=== PATIENT | male | born 1975 | race Two or more races ===

== ENCOUNTER 2016-05-06 00:15 | Emergency (ER) | payer SELFPAY ==
[2016-05-06] MEDS ORDERED: ACETAMINOPHEN 325 MG TABLET PO ONE (01:18)
[2016-05-06] MEDS ORDERED: ONDANSETRON 4 MG TAB.RAPDIS PO ONE (01:18)
[2016-05-06] MEDS ORDERED: ASPIRIN 81 MG TABLET, CHEWABLE PO ONE (01:18)
--- NOTE | 2016-05-06 01:18 | ER Document Report ---
ED Medical Screen (RME) - General Stated Complaint: FEVER Time seen by provider: 01:15 Mode of Arrival: Ambulatory Information source: Patient Notes: 40-year-old male presents to ED for fever cough sore throat headache chills and chest pain for 4 days. Patient denies a flu shot. Patient states she has a history of high cholesterol denies any family cardiac history. I have greeted and performed a rapid initial assessment of this patient. A comprehensive ED assessment and evaluation of the patient, analysis of test results and completion of medical decision making process will be conducted by an additional ED providers. TRAVEL OUTSIDE OF THE [place] IN LAST 30 DAYS: No - Related Data Allergies/Adverse Reactions: No Known Allergies Allergy (Verified 02/04/16 11:52) Past Medical History - Past Medical History Cardiac Medical History: Reports: Hx Hypercholesterolemia Neurological Medical History: Denies: Hx Seizures - Immunizations Hx Diphtheria, Pertussis, Tetanus Vaccination: Yes Physical Exam - Vital signs Vitals: Temp Pulse Resp BP Pulse Ox 101.7 F H 111 H 16 130/66 H 94 05/06/16 00:49 05/06/16 00:49 05/06/16 00:49 05/06/16 00:49 05/06/16 00:49 Course - Vital Signs Vital signs: Temp Pulse Resp BP Pulse Ox 101.7 F H 111 H 16 130/66 H 94 05/06/16 00:49 05/06/16 00:49 05/06/16 00:49 05/06/16 00:49 05/06/16 00:49
[2016-05-06] MEDS ORDERED: FAMOTIDINE 20 MG TABLET PO ONE (01:19)
[2016-05-06 02:53] LABS: ABSOLUTE LYMPHOCYTES (AUTO) 0.7 10^3/uL (0.5-4.7); ABSOLUTE MONOCYTES (AUTO) 0.7 10^3/uL (0.1-1.4); ABSOLUTE NEUT (AUTO) 3.1 10^3/uL (1.7-8.2); BASOPHILS % (AUTO) 0.9 % (0-2); EOSINOPHILS % (AUTO) 0.1 % (0-6); HEMOGLOBIN 15.8 g/dL (13.5-17.0); HGB HCT DIFFERENCE 0.4; LYMPHOCYTES % (AUTO) 15.9 % (13-45); MEAN CORPUSCULAR HEMOGLOBIN 29.6 pg (27.0-33.4); MEAN CORPUSCULAR HGB CONC 33.7 g/dL (32.0-36.0); MEAN CORPUSCULAR VOLUME 88 fl (80-97); MONOCYTES % (AUTO) 14.6 % (3-13); RED BLOOD COUNT 5.35 10^6/uL (4.35-5.55); RED CELL DISTRIBUTION WIDTH 12.6 % (11.5-14.0); SEGMENTED NEUTROPHILS % (AUTO) 68.5 % (42-78); WHITE BLOOD COUNT 4.6 10^3/uL (4.0-10.5)
[2016-05-06 03:02] LABS: ALANINE AMINOTRANSFERASE 72 U/L (21-72); ALBUMIN 4.2 g/dL (3.5-5.0); ALKALINE PHOSPHATASE 64 U/L (38-126); ANION GAP 11 (5-19); ASPARTATE AMINO TRANSFERASE 59 U/L (17-59); BILIRUBIN,TOTAL 0.6 mg/dL (0.2-1.3); BLOOD UREA NITROGEN 15 mg/dL (7-20); CALCIUM 9.3 mg/dL (8.4-10.2); CARBON DIOXIDE 25 mmol/L (22-30); CHLORIDE 102 mmol/L (98-107); CREATINE KINASE 112 U/L (55-170); CREATININE RESULT 0.99 mg/dL (0.52-1.25); GLUCOSE 116 mg/dL (75-110); LIPASE 75.2 U/L (23-300); POTASSIUM 4.1 mmol/L (3.6-5.0); SODIUM 138.3 mmol/L (137-145); TOTAL PROTEIN 7.7 g/dL (6.3-8.2)
[2016-05-06 03:15] LABS: CREATINE KINASE MB < 0.22 ng/mL (<4.55); TROPONIN I < 0.012 ng/mL
[2016-05-06 03:28] LABS: APPEARANCE,URINE CLEAR; BILIRUBIN,URINE NEGATIVE (NEGATIVE); GLUCOSE, URINE NEGATIVE (NEGATIVE); KETONES,URINE NEGATIVE (NEGATIVE); LEUKOCYTE ESTERASE,URINE NEGATIVE (NEGATIVE); NITRITE,URINE NEGATIVE (NEGATIVE); PROTEIN,URINE NEGATIVE (NEGATIVE); URINE SPECIFIC GRAVITY 1.023; UROBILINOGEN,URINE NEGATIVE mg/dL (<2.0)
--- NOTE | 2016-05-06 05:17 | ER Document Report ---
ED General - General Chief Complaint: Fever Stated Complaint: FEVER Mode of Arrival: Ambulatory Notes: Patient is 40-year-old male who presents with complaint of cough, fevers, congestion, and pain in his lower ribs whenever he coughs. No vomiting. No diarrhea. Symptoms have been ongoing for 4 days. He works at a restaurant. He has no chronic medical problems. He does not smoke. TRAVEL OUTSIDE OF THE [place] IN LAST 30 DAYS: No - Related Data Allergies/Adverse Reactions: No Known Allergies Allergy (Verified 05/06/16 01:15) Past Medical History - General Information source: Patient - Social History Smoking Status: Never Smoker Frequency of alcohol use: Social Drug Abuse: None Family History: Reviewed & Not Pertinent, Other - Negative for premature coronary artery disease - Past Medical History Cardiac Medical History: Reports: Hx Hypercholesterolemia Neurological Medical History: Denies: Hx Seizures Renal/ Medical History: Denies: Hx Peritoneal Dialysis - Immunizations Hx Diphtheria, Pertussis, Tetanus Vaccination: Yes Review of Systems - Review of Systems Notes: My Normal Review Basic REVIEW OF SYSTEMS: CONSTITUTIONAL : Fevers EENT: Sinus congestion CARDIOVASCULAR: Pain with cough RESPIRATORY: Current cough GASTROINTESTINAL: Denies abdominal pain. Denies nausea, vomiting, or diarrhea. Denies constipation. Last BM: MUSCULOSKELETAL: Denies neck or back pain or joint pain or swelling. SKIN: Denies rash or skin lesions. NEUROLOGICAL: Denies altered mental status or loss of consciousness. ALL OTHER SYSTEMS REVIEWED AND NEGATIVE. Physical Exam - Vital signs Vitals: Temp Pulse Resp BP Pulse Ox 101.7 F H 111 H 16 130/66 H 94 05/06/16 00:49 05/06/16 00:49 05/06/16 00:49 05/06/16 00:49 05/06/16 00:49 - Notes Notes: General Appearance: Well nourished, alert, cooperative, no acute distress, no obvious discomfort. Well-appearing. Vitals: reviewed, See vital signs table. Head: no swelling or tenderness to the head Eyes: PERRL, EOMI, Conjuctiva clear Mouth: No decreasd moisture Throat: No tonsillar inflammation, No airway obstruction, No lymphadenopathy Ears: Normal appearing tympanic membranes. Neck: Supple, no neck tenderness, No thyromegaly Lungs: No wheezing, No rales, No rhonci, No accessory muscle use, good air exchange bilaterally. Heart: Normal rate, Regular rythm, No murmur, no rub Abdomen: Normal BS, soft, No rigidity, No abdominal tenderness, No guarding, no rebound, no abdominal masses, no organomegaly Extremities: strength 5/5 in all extremities, good pulses in all extremities, no swelling or tenderness in the extremities, no edema. Skin: warm, dry, appropriate color, no rash Neuro: speech clear, oriented x 3, normal affect, responds appropriately to questions. Course - Vital Signs Vital signs: Temp Pulse Resp BP Pulse Ox 101.7 F H 111 H 16 130/66 H 94 05/06/16 00:49 05/06/16 00:49 05/06/16 00:49 05/06/16 00:49 05/06/16 00:49 - Laboratory Result Diagrams: 05/06/16 02:24 05/06/16 02:24 Laboratory results interpreted by me: 05/06/16 05/06/16 05/06/16 02:24 02:24 02:24 Plt Count 147 L Monocytes % 14.6 H Glucose 116 H Lactic Acid 0.6 L - Transfer of Care Notes: 05/06/16 05:17 Patient has symptoms are consistent with the flu. Informed patient most likely has flu. His symptoms for over 4 days. At this point is just symptomatically controlled with Tylenol. His chest x-ray is negative for pneumonia. He initially complained of chest pain and therefore they obtained cardiac enzymes in triage. These are negative. I do not suspect coronary artery disease. I suspect his pain is from his coughing. Patient will be discharged home. I encouraged him to return to ER if has worsening pain, difficulty breathing, fevers, or feels unwell. Patient agrees with plan and will be discharged home. Discharge - Discharge Clinical Impression: Cough Fever Qualifiers: Fever type: unspecified Qualified Code(s): R50.9 - Fever, unspecified URI (upper respiratory infection) Qualifiers: URI type: unspecified URI Qualified Code(s): J06.9 - Acute upper respiratory infection, unspecified Condition: Good Disposition: HOME, SELF-CARE Additional Instructions: Based on your symptoms I suspect that most likely you have the flu. You could also have another virus that causes an upper respiratory infection. Currently your chest x-ray is normal. Your lung sidhu are clear. There is no evidence of pneumonia. Is still important that you have low threshold to return to ER if he started having difficulty breathing, vomiting, or worsening fevers that did not respond to Tylenol. Please follow closely with her doctor in 3-4 days for reevaluation if you continue have any symptoms. Please take Tylenol and Motrin for fever and body aches. Please stay home and rest and drink lots of fluids. . Forms: Return to Work
[2016-05-06 05:21] VITALS: BP 129/73
--- NOTE | 2016-05-06 08:33 | EKG REPORT ---
SEVERITY:- BORDERLINE ECG - SINUS RHYTHM BORDERLINE T ABNORMALITIES, INFERIOR LEADS : Confirmed by: Janey Ramírez 06-May-2016 08:31:59
== END 2016-05-06 05:21 | disposition home or self-care (01) ==
LOC: ER 00:15
DX: J06.9 Acute upper respiratory infection, unspecified (principal); R50.9 Fever, unspecified; R07.9 Chest pain, unspecified; E78.00 Pure hypercholesterolemia, unspecified
CPT/HCPCS: 93005; 99284; 36415; 82553; 82550; 83690; 85025; 80053; 81001; 84484; 83605; 71020; 93010; S0119

== ENCOUNTER 2016-06-24 12:35 | Emergency (ER) | payer SELFPAY ==
[2016-06-24] MEDS ORDERED: LIDOCAINE 2% VISCOUS SOLN 20 ML UDCUP PO ONE (13:02)
[2016-06-24] MEDS ORDERED: MAG HYDROX/AL HYDROX/SIMETH SUSP 30 ML UDCUP PO ONE (13:02)
[2016-06-24] MEDS ORDERED: METOCLOPRAMIDE HCL ORAL SOLN 10 MG/10 ML UDCUP PO ONE (13:02)
[2016-06-24 13:03] LABS: ABSOLUTE EOSINOPHILS # (AUTO) 0.6 10^3/uL (0.0-0.6); ABSOLUTE LYMPHOCYTES (AUTO) 1.4 10^3/uL (0.5-4.7); ABSOLUTE MONOCYTES (AUTO) 0.4 10^3/uL (0.1-1.4); ABSOLUTE NEUT (AUTO) 3.2 10^3/uL (1.7-8.2); BASOPHILS % (AUTO) 0.8 % (0-2); EOSINOPHILS % (AUTO) 10.4 % (0-6); HEMOGLOBIN 15.3 g/dL (13.5-17.0); HGB HCT DIFFERENCE 0.9; LYMPHOCYTES % (AUTO) 24.7 % (13-45); MEAN CORPUSCULAR HGB CONC 34.1 g/dL (32.0-36.0); MEAN CORPUSCULAR VOLUME 88 fl (80-97); MONOCYTES % (AUTO) 7.7 % (3-13); RED BLOOD COUNT 5.11 10^6/uL (4.35-5.55); RED CELL DISTRIBUTION WIDTH 13.6 % (11.5-14.0); SEGMENTED NEUTROPHILS % (AUTO) 56.4 % (42-78); WHITE BLOOD COUNT 5.7 10^3/uL (4.0-10.5)
[2016-06-24 13:04] LABS: VENOUS BLOOD BASE EXCESS -2.3 mmol/L; VENOUS BLOOD HCO3 21.4 mmol/L (20-32); VENOUS BLOOD PCO2 34.5 mmHg (35-63); VENOUS BLOOD PH 7.41 (7.30-7.42)
--- NOTE | 2016-06-24 13:20 | ER Document Report ---
ED General - General Chief Complaint: Chest Pain Stated Complaint: CHEST PAIN Time seen by provider: 12:40 Mode of Arrival: Medic Information source: Patient Notes: 40-year-old male who reports sudden onset of a sharp pinching type pain just lateral to the left upper sternal border while walking about 10:00 this morning. He reports shortness breath diaphoresis and nausea with it says it lasted about 10 minutes and then resolved and he said to further episodes since then. He is pain-free at the moment. He reports she's had symptoms like this several times in the past dayhis panic attacks. He reports no history of travel or immobilization. He denies fever, chills, cough, hematemesis, mattress , melena, abdominal pain, or back pain. He reports the pain numbness weakness or swelling to extremities. He reports his chest discomfort is nonradiating Physical Exam: General: Alert, appears well. HEENT: Normocephalic. Atraumatic. PERRLA. Extraocular movements intact. Oropharynx clear. Neck: Supple. Non-tender. Respiratory: No respiratory distress. Clear and equal breath sounds bilaterally. Nontender to palpation Cardiovascular: Regular rate and rhythm. PMI not displaced Abdominal: Normal Inspection. Soft, non-tender. No distension. Normal Bowel Sounds. Back: Non-tender. No deformity or step off. Extremities: Moves all four extremities. Upper extremities: Normal inspection. Non-tender. Normal color. Normal ROM. Normal temperature. Lower extremities: Normal inspection. Non-tender. No edema. Normal color. Normal ROM. Normal temperature. 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 Normal Mood. Skin: Warm. Dry. Normal color. TRAVEL OUTSIDE OF THE [place] IN LAST 30 DAYS: No - Related Data Allergies/Adverse Reactions: No Known Allergies Allergy (Verified 05/06/16 01:15) Past Medical History - Social History Smoking Status: Never Smoker Chew tobacco use (# tins/day): No Frequency of alcohol use: Heavy - Patient reports about 12 beers daily on weekends in 3 or 4 day during the week Drug Abuse: None Family History: Other - Negative for premature coronary artery disease Reports mother has panic attacks - Past Medical History Cardiac Medical History: Reports: Hx Hypercholesterolemia Denies: Hx Coronary Artery Disease, Hx Hypertension Neurological Medical History: Denies: Hx Seizures Endocrine Medical History: Denies: Hx Diabetes Mellitus Type 1, Hx Diabetes Mellitus Type 2 Renal/ Medical History: Denies: Hx Peritoneal Dialysis - Immunizations Hx Diphtheria, Pertussis, Tetanus Vaccination: Yes Review of Systems - Review of Systems Constitutional: denies: Chills, Fever EENT: denies: Ear pain, Throat pain Cardiovascular: See HPI. denies: Palpitations, Syncope Respiratory: denies: Cough Gastrointestinal: denies: Diarrhea, Vomiting, Blood in vomit, Black stools, Rectal bleeding Genitourinary: denies: Burning, Dysuria Musculoskeletal: denies: Back pain, Leg swelling, Ankle swelling Skin: denies: Rash Hematologic/Lymphatic: denies: Swollen glands Neurological/Psychological: denies: Weakness, Numbness Physical Exam - Vital signs Vitals: Temp Pulse Resp BP Pulse Ox 98.3 F 84 18 106/84 96 06/24/16 12:45 06/24/16 12:45 06/24/16 12:45 06/24/16 12:45 06/24/16 12:45 Course - Re-evaluation Re-evalutation: 06/24/16 15:23 Patient remains asymptomatic here. His heart score of 1 and coronary artery disease as etiology for his chest discomfort. Differential would include alkaline gastritis as well as panic attacks. Of counseled him to cut back on his alcohol use and take Prevacid or Prilosec [id number] for gastritis type symptoms. Also provided with outpatient physician referral as he has no local physician - Vital Signs Vital signs: Temp Pulse Resp BP Pulse Ox 98.3 F 84 18 106/84 96 06/24/16 12:45 06/24/16 12:45 06/24/16 12:45 06/24/16 12:45 06/24/16 12:45 - Laboratory Result Diagrams: 06/24/16 12:42 06/24/16 12:42 Laboratory results interpreted by me: 06/24/16 06/24/16 06/24/16 12:42 12:42 12:42 Eosinophils % 10.4 H VBG pCO2 34.5 L Sodium 148.7 H Chloride 110 H Carbon Dioxide 19 L Anion Gap 20 H Glucose 113 H ALT 74 H - Diagnostic Test Radiology reviewed: Image reviewed, Reports reviewed - EKG Interpretation by Me Additional EKG results interpreted by me: 06/24/16 13:24 EKG reviewed by myself shows sinus rhythm at 85 no acute changes 06/24/16 15:22 Repeat EKG reviewed by myself shows sinus rhythm at 70 with no acute changes Discharge - Discharge Clinical Impression: Alcohol abuse Chest pain Qualifiers: Chest pain type: unspecified Qualified Code(s): R07.9 - Chest pain, unspecified Condition: Stable Disposition: HOME, SELF-CARE Instructions: Chest Pain of Unclear Cause (OM), Prilosec (Acid Pump Inhibitor ) ([facility]), Antacid Therapy ([facility]) Referrals: DIONICIO BECKER MD [ACTIVE STAFF] - Follow up in 1 week
[2016-06-24 13:26] LABS: ALANINE AMINOTRANSFERASE 74 U/L (21-72); ALBUMIN 4.1 g/dL (3.5-5.0); ALCOHOL 17 mg/dL (NONE DETECTED); ALKALINE PHOSPHATASE 64 U/L (38-126); ASPARTATE AMINO TRANSFERASE 38 U/L (17-59); BILIRUBIN,DIRECT 0.2 mg/dL (0.0-0.4); BILIRUBIN,TOTAL 0.5 mg/dL (0.2-1.3); BLOOD UREA NITROGEN 10 mg/dL (7-20); CALCIUM 8.6 mg/dL (8.4-10.2); CARBON DIOXIDE 19 mmol/L (22-30); CHLORIDE 110 mmol/L (98-107); CREATINE KINASE 81 U/L (55-170); GLUCOSE 113 mg/dL (75-110); LIPASE 47.8 U/L (23-300); MAGNESIUM 1.8 mg/dL (1.6-2.3); POTASSIUM 3.8 mmol/L (3.6-5.0); SODIUM 148.7 mmol/L (137-145); TOTAL PROTEIN 6.8 g/dL (6.3-8.2)
[2016-06-24 13:27] LABS: ANION GAP 20 (5-19)
--- NOTE | 2016-06-24 13:31 | EKG REPORT ---
SEVERITY:- NORMAL ECG - SINUS RHYTHM : Confirmed by: Rylan Espino MD 24-Jun-2016 13:30:56
[2016-06-24 13:41] LABS: CREATINE KINASE MB 0.58 ng/mL (<4.55)
[2016-06-24 13:42] LABS: TROPONIN I < 0.012 ng/mL
[2016-06-24] MEDS ORDERED: 1/2 NORMAL SALINE 1,000 ML IV ONE (13:54)
[2016-06-24 15:38] VITALS: BP 132/88
--- NOTE | 2016-06-24 18:58 | EKG REPORT ---
SEVERITY:- NORMAL ECG - SINUS RHYTHM : Confirmed by: Rylan Espino MD 24-Jun-2016 18:57:26
== END 2016-06-24 15:40 | disposition home or self-care (01) ==
LOC: ER 12:35
DX: R07.9 Chest pain, unspecified (principal); F10.10 Alcohol abuse, uncomplicated; R06.02 Shortness of breath; R61 Generalized hyperhidrosis; R11.0 Nausea
CPT/HCPCS: 93005; 99285; 36415; 82553; 80307; 82550; 83690; 83735; 85025; 80053; 84484; 82803; 71010; 93010; J3490

== ENCOUNTER 2016-11-21 14:42 | Emergency (ER) | payer SELFPAY ==
[2016-11-21 15:19] LABS: ABSOLUTE EOSINOPHILS # (AUTO) 0.2 10^3/uL (0.0-0.6); ABSOLUTE LYMPHOCYTES (AUTO) 1.3 10^3/uL (0.5-4.7); ABSOLUTE MONOCYTES (AUTO) 0.4 10^3/uL (0.1-1.4); ABSOLUTE NEUT (AUTO) 3.6 10^3/uL (1.7-8.2); BASOPHILS % (AUTO) 0.8 % (0-2); EOSINOPHILS % (AUTO) 4.4 % (0-6); HEMATOCRIT 43.8 % (37.9-51.0); HEMOGLOBIN 14.8 g/dL (13.5-17.0); HGB HCT DIFFERENCE 0.6; LYMPHOCYTES % (AUTO) 23.9 % (13-45); MEAN CORPUSCULAR HEMOGLOBIN 30.8 pg (27.0-33.4); MEAN CORPUSCULAR HGB CONC 33.9 g/dL (32.0-36.0); MEAN CORPUSCULAR VOLUME 91 fl (80-97); MONOCYTES % (AUTO) 6.8 % (3-13); RED BLOOD COUNT 4.82 10^6/uL (4.35-5.55); RED CELL DISTRIBUTION WIDTH 13.2 % (11.5-14.0); SEGMENTED NEUTROPHILS % (AUTO) 64.1 % (42-78); WHITE BLOOD COUNT 5.6 10^3/uL (4.0-10.5)
--- NOTE | 2016-11-21 15:25 | ER Document Report ---
ED General - General Information source: Patient TRAVEL OUTSIDE OF THE [place] IN LAST 30 DAYS: No <NEO CARTWRIGHT - Last Filed: 11/21/16 15:25> <JOON MARTINEZ - Last Filed: 11/21/16 16:48> - General Chief Complaint: Chest Pain Stated Complaint: CHEST PAIN Time Seen by Provider: 11/21/16 15:13 Notes: Patient is a 41-year-old male who presents to the emergency department today with complaints of reproducible chest pain for one week. Patient states that he was here in June for chest pain however "that was a panic attack, this is different". Patient's pain is reproducible with palpation of the left anterior chest wall. Patient states his pain is not reproduced with a cough. Patient denies a history of coronary artery disease and also denies a family history of coronary artery disease. (NEO CARTWRIGHT) - Related Data Allergies/Adverse Reactions: No Known Allergies Allergy (Verified 05/06/16 01:15) Past Medical History - General Information source: Patient, [facility] Records - Social History Smoking Status: Never Smoker Cigarette use (# per day): No Frequency of alcohol use: Heavy - 6 beers a day Drug Abuse: None Occupation: Cook Lives with: Family Family History: Reviewed & Not Pertinent, Other - Negative for premature coronary artery disease Reports mother has panic attacks - Past Medical History Cardiac Medical History: Reports: Hx Hypercholesterolemia Surgical Hx: Negative - Immunizations Hx Diphtheria, Pertussis, Tetanus Vaccination: Yes <NEO CARTWRIGHT - Last Filed: 11/21/16 15:25> Review of Systems - Review of Systems Constitutional: No symptoms reported EENT: No symptoms reported Cardiovascular: See HPI, Chest pain - reproducible Respiratory: denies: Cough Gastrointestinal: No symptoms reported Genitourinary: No symptoms reported Male Genitourinary: No symptoms reported Musculoskeletal: No symptoms reported Skin: No symptoms reported Hematologic/Lymphatic: No symptoms reported Neurological/Psychological: No symptoms reported -: Yes All other systems reviewed and negative <NEO CARTWRIGHT - Last Filed: 11/21/16 15:25> Physical Exam - Vital signs Interpretation: Normal - General General appearance: Appears well, Alert - HEENT Head: Normocephalic, Atraumatic Eyes: Normal Pupils: PERRL - Respiratory Respiratory status: No respiratory distress Chest status: Tender - left anterior chest wall tenderness with palpation, reproducible chest pain Breath sounds: Normal Chest palpation: Normal - Cardiovascular Rhythm: Regular Heart sounds: Normal auscultation Murmur: No - Abdominal Inspection: Normal Distension: No distension Bowel sounds: Normal Tenderness: Nontender Organomegaly: No organomegaly - Back Back: Normal, Nontender - Extremities General upper extremity: Normal inspection, Normal strength. No: Edema General lower extremity: Normal inspection, Normal strength. No: Edema - Neurological Neuro grossly intact: Yes Cognition: Normal Orientation: AAOx4 [place] Coma Scale Eye Opening: Spontaneous Maru Coma Scale Verbal: Oriented Maru Coma Scale Motor: Obeys Commands [place] Coma Scale Total: 15 Speech: Normal - Psychological Associated symptoms: Normal affect, Normal mood - Skin Skin Temperature: Warm Skin Moisture: Dry Skin Color: Normal <NEO CARTWRIGHT - Last Filed: 11/21/16 15:25> - Vital signs Vitals: Pulse Ox 96 11/21/16 15:08 Course - Laboratory Result Diagrams: 11/21/16 15:00 11/21/16 15:00 <CHAYNEO - Last Filed: 11/21/16 15:25> - Laboratory Result Diagrams: 11/21/16 15:00 11/21/16 15:00 <JOON MARTINEZ - Last Filed: 11/21/16 16:48> - Vital Signs Vital signs: Temp Pulse Resp BP Pulse Ox 98 11/21/16 15:09 Discharge <CHAYNEO - Last Filed: 11/21/16 15:25> <JOON MARTINEZ - Last Filed: 11/21/16 16:48> - Discharge Clinical Impression: Chest wall pain Condition: Stable Disposition: HOME, SELF-CARE Additional Instructions: Chest Wall Pain: Your chest pain has been diagnosed as coming from the chest wall. This is often caused by straining the muscles or joints in the chest during physical activity, direct trauma, coughing, or vigorous vomiting. Persons with arthritis are especially prone to this type of pain, due to inflammation of the cartilage joints near the breast bone. Occasionally, no cause can be found. Rest from strenuous physical activity. This kind of chest pain is usually made worse by movement of the chest. Depending on the symptoms, we may recommend medication such as Motrin or Aleve for antiinflammatory effects. If the pain is new, and seems to be due to muscle strain, cold packs can help. Otherwise, apply gentle warmth to the painful area for 15 minutes every hour or two. You should contact the doctor immediately if things change. Further evaluation is needed if you develop a fever or cough, if the nature of the pain changes, or if you become short of breath. Follow-up with your doctor if not improving. RETURN TO THE EMERGENCY ROOM IF ANY NEW OR WORSENING SYMPTOMS. Trishaibe Attestation: 11/21/16 16:48 I personally performed the services described in the documentation, reviewed and edited the documentation which was dictated to the scribe in my presence, and it accurately records my words and actions. (JOON MARTINEZ) Trishaibe Documentation - Scribe Written by Eduardo:: Eduardo Villa, 11/21/2016 1530 acting as scribe for :: Yamil <NEO CARTWRIGHT - Last Filed: 11/21/16 15:25>
[2016-11-21 15:32] LABS: ALANINE AMINOTRANSFERASE 50 U/L (21-72); ALBUMIN 4.5 g/dL (3.5-5.0); ALKALINE PHOSPHATASE 56 U/L (38-126); ANION GAP 14 (5-19); ASPARTATE AMINO TRANSFERASE 32 U/L (17-59); BILIRUBIN,DIRECT 0.4 mg/dL (0.0-0.4); BILIRUBIN,TOTAL 0.6 mg/dL (0.2-1.3); BLOOD UREA NITROGEN 12 mg/dL (7-20); CALCIUM 9.5 mg/dL (8.4-10.2); CARBON DIOXIDE 26 mmol/L (22-30); CHLORIDE 104 mmol/L (98-107); CREATINE KINASE 97 U/L (55-170); CREATININE RESULT 0.83 mg/dL (0.52-1.25); GLUCOSE 101 mg/dL (75-110); POTASSIUM 4.1 mmol/L (3.6-5.0); SODIUM 144.3 mmol/L (137-145); TOTAL PROTEIN 7.3 g/dL (6.3-8.2)
[2016-11-21 15:46] LABS: CREATINE KINASE MB 0.58 ng/mL (<4.55)
[2016-11-21 15:49] LABS: TROPONIN I < 0.012 ng/mL
--- NOTE | 2016-11-21 16:02 | RADIOLOGY REPORT (SQ) ---
EXAM DESCRIPTION: CHEST SINGLE VIEW COMPLETED DATE/TIME: 11/21/2016 3:39 pm REASON FOR STUDY: bed 16 cp COMPARISON: 06/24/2016 EXAM PARAMETERS: NUMBER OF VIEWS: One view. TECHNIQUE: Single frontal radiographic view of the chest acquired. RADIATION DOSE: NA LIMITATIONS: None. FINDINGS: LUNGS AND PLEURA: No opacities, masses or pneumothorax. No pleural effusion. MEDIASTINUM AND HILAR STRUCTURES: No masses. Contour normal. HEART AND VASCULAR STRUCTURES: Heart normal in size. Normal vasculature. BONES: No acute findings. HARDWARE: None in the chest. OTHER: No other significant finding. IMPRESSION: NO ACUTE RADIOGRAPHIC FINDING IN THE CHEST. TECHNICAL DOCUMENTATION: JOB ID: [id number]
[2016-11-21 17:02] VITALS: BP 106/73
--- NOTE | 2016-11-21 18:57 | EKG REPORT ---
SEVERITY:- BORDERLINE ECG - SINUS RHYTHM BORDERLINE T ABNORMALITIES, INFERIOR LEADS BORDERLINE ST ELEVATION, ANTEROLATERAL LEADS : Confirmed by: Rylan Espino MD 21-Nov-2016 18:57:19
--- NOTE | 2016-11-21 18:58 | EKG REPORT ---
SEVERITY:- NORMAL ECG - SINUS RHYTHM : Confirmed by: Rylan Espino MD 21-Nov-2016 18:57:28
== END 2016-11-21 17:02 | disposition home or self-care (01) ==
LOC: ER 14:42
DX: R07.89 Other chest pain (principal); R05 Cough
CPT/HCPCS: 36415; 71010; 80053; 82550; 82553; 84484; 85025; 93005; 93010; 99285

== ENCOUNTER 2017-05-10 16:00 | Emergency (ER) | payer SELFPAY ==
[2017-05-10] MEDS ORDERED: ONDANSETRON HCL INJ/PF 4 MG/2 ML SDV IV ONE (16:30)
[2017-05-10] MEDS ORDERED: NORMAL SALINE 1000 ML 1,000 ML IV ONE (16:30)
--- NOTE | 2017-05-10 16:33 | ER Document Report ---
ED Medical Screen (RME) - General Chief Complaint: Dizziness Stated Complaint: DIZZY Time Seen by Provider: 05/10/17 16:30 Mode of Arrival: Medic Information source: Patient TRAVEL OUTSIDE OF THE [place] 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 EMS called and transported here for further evaluation. - Related Data Allergies/Adverse Reactions: No Known Allergies Allergy (Verified 05/10/17 16:24) Past Medical History - Social History Chew tobacco use (# tins/day): No Frequency of alcohol use: daily after work Drug Abuse: None - Past Medical History Cardiac Medical History: Reports: Hx Hypercholesterolemia Denies: Hx Coronary Artery Disease, Hx Hypertension Neurological Medical History: Denies: Hx Seizures Endocrine Medical History: Denies: Hx Diabetes Mellitus Type 1, Hx Diabetes Mellitus Type 2 Renal/ Medical History: Denies: Hx Peritoneal Dialysis - Immunizations Hx Diphtheria, Pertussis, Tetanus Vaccination: Yes Physical Exam - Vital signs Vitals: Temp Pulse Resp BP Pulse Ox 98.4 F 79 16 118/75 93 05/10/17 16:13 05/10/17 16:13 05/10/17 16:13 05/10/17 16:13 05/10/17 16:13 Course - Vital Signs Vital signs: Temp Pulse Resp BP Pulse Ox 98.4 F 79 16 118/75 93 05/10/17 16:13 05/10/17 16:13 05/10/17 16:13 05/10/17 16:13 05/10/17 16:13
[2017-05-10 16:47] LABS: ABSOLUTE EOSINOPHILS # (AUTO) 0.4 10^3/uL (0.0-0.6); ABSOLUTE MONOCYTES (AUTO) 0.5 10^3/uL (0.1-1.4); ABSOLUTE NEUT (AUTO) 3.3 10^3/uL (1.7-8.2); BASOPHILS % (AUTO) 0.6 % (0-2); EOSINOPHILS % (AUTO) 5.7 % (0-6); HEMATOCRIT 45.4 % (37.9-51.0); HEMOGLOBIN 15.7 g/dL (13.5-17.0); LYMPHOCYTES % (AUTO) 32.6 % (13-45); MEAN CORPUSCULAR HEMOGLOBIN 30.9 pg (27.0-33.4); MEAN CORPUSCULAR HGB CONC 34.5 g/dL (32.0-36.0); MEAN CORPUSCULAR VOLUME 90 fl (80-97); MONOCYTES % (AUTO) 8.3 % (3-13); PLATELET COUNT 212 10^3/uL (150-450); RED BLOOD COUNT 5.07 10^6/uL (4.35-5.55); RED CELL DISTRIBUTION WIDTH 12.7 % (11.5-14.0); SEGMENTED NEUTROPHILS % (AUTO) 52.8 % (42-78); TOTAL CELLS COUNTED % (AUTO) 100 %; WHITE BLOOD COUNT 6.2 10^3/uL (4.0-10.5)
[2017-05-10 17:07] LABS: ALANINE AMINOTRANSFERASE 118 U/L (21-72); ALBUMIN 4.4 g/dL (3.5-5.0); ALKALINE PHOSPHATASE 55 U/L (38-126); ANION GAP 11 (5-19); ASPARTATE AMINO TRANSFERASE 60 U/L (17-59); BILIRUBIN,DIRECT 0.3 mg/dL (0.0-0.4); BILIRUBIN,TOTAL 0.6 mg/dL (0.2-1.3); BLOOD UREA NITROGEN 14 mg/dL (7-20); CARBON DIOXIDE 23 mmol/L (22-30); CHLORIDE 106 mmol/L (98-107); CREATINE KINASE 93 U/L (55-170); GLUCOSE 143 mg/dL (75-110); POTASSIUM 4.1 mmol/L (3.6-5.0); SODIUM 140.2 mmol/L (137-145); TOTAL PROTEIN 7.3 g/dL (6.3-8.2)
[2017-05-10 17:18] LABS: CREATINE KINASE MB 0.58 ng/mL (<4.55)
[2017-05-10 17:19] LABS: TROPONIN I < 0.012 ng/mL
[2017-05-10 19:36] VITALS: BP 139/73
--- NOTE | 2017-05-10 21:34 | EKG REPORT ---
SEVERITY:- ABNORMAL ECG - SINUS RHYTHM NONSPECIFIC ST-T CHANGES- INFERIOR LEADS : Confirmed by: Rylan Espino MD 10-May-2017 21:33:46
== END 2017-05-10 19:36 | disposition home or self-care (01) ==
LOC: ER 16:00
DX: R55 Syncope and collapse (principal)
CPT/HCPCS: 93005; 99284; 96361; 96374; 36415; 82553; 82550; 85025; 80053; 84484; 93010; J2405; J7030

== ENCOUNTER 2017-12-16 22:47 | Emergency (ER) | payer SELFPAY ==
[2017-12-17 00:56] VITALS: BP 120/84
--- NOTE | 2017-12-17 01:02 | ER Document Report ---
ED General - General Chief Complaint: Anxiety Stated Complaint: PANIC ATTACK Time Seen by Provider: 12/17/17 00:11 Notes: Patient is a 42-year-old male with history of panic disorder that presents to the emergency department for chief complaint of panic episode anxiety. Patient states that while he was at work this evening, he was standing and felt lightheaded, and then started hyperventilating, and having palpitations, and he felt that his hands were clenching up. He called 911 at this point, EMS arrived , and by that time he was feeling better. So we decided not to come. He then started feeling similar sensations, again his hands clenching a perioral paresthesias, they are on the way to the hospital and they called 911 and he was brought into the emergency department. He did take 1 of his prescribed hydroxyzine 25 mg prior to ED arrival. At this time he is feeling very well, denies any of these symptoms, and they have all resolved. These are very similar to his panic attacks has had in the past this will just seem to be worse. He denies any chest pain, shortness of breath, nausea, vomiting or abdominal pain. Past Medical History: Panic disorder, hyperlipidemia Past Surgical History: Denies surgical history Social History: Admits to drinking alcohol daily, denies tobacco or drug use. Family History: Reviewed and noncontributory for presenting illness Allergies: Reviewed, see documented allergy list. REVIEW OF SYSTEMS: Unless otherwise stated in this report the patient's positive and negative responses for review of systems for constitutional, eyes, ENT, cardiovascular, respiratory, gastrointestinal, neurological, genitourinary, musculoskeletal, and integumentary systems and related systems to the presenting problem are either as stated in the HPI or were not pertinent or were negative for the symptoms and/or complaints related to the presenting medical problem. PHYSICAL EXAMINATION: Vital signs reviewed, nursing noted reviewed. GENERAL: Well-appearing, well-nourished and in no acute distress. HEAD: Atraumatic, normocephalic. EYES: Eyes appear normal, extraocular movements intact, sclera anicteric, conjunctiva are normal. ENT: nares patent, oropharynx clear without exudates. Moist mucous membranes. NECK: Normal range of motion, supple without lymphadenopathy LUNGS: Breath sounds clear to auscultation bilaterally and equal. No wheezes rales or rhonchi. HEART: Regular rate and rhythm without murmurs ABDOMEN: Soft, nontender, normoactive bowel sounds. No rebound, guarding, or rigidity. No masses appreciated. EXTREMITIES: Nontender, good range of motion, no pitting or edema. NEUROLOGICAL: No focal neurological deficits. Moves all extremities spontaneously Motor and sensory grossly intact on exam. PSYCH: Normal mood, normal affect. Conversant and appropriate SKIN: Warm, Dry, normal turgor, no rashes or lesions noted on exposed skin TRAVEL OUTSIDE OF THE [place] IN LAST 30 DAYS: No - Related Data Allergies/Adverse Reactions: No Known Allergies Allergy (Verified 05/10/17 16:24) Past Medical History - Social History Smoking Status: Never Smoker Family History: Reviewed & Not Pertinent, Other - Negative for premature coronary artery disease Reports mother has panic attacks Patient has suicidal ideation: No Patient has homicidal ideation: No - Past Medical History Cardiac Medical History: Reports: Hx Hypercholesterolemia Denies: Hx Coronary Artery Disease, Hx Hypertension Neurological Medical History: Denies: Hx Seizures Endocrine Medical History: Denies: Hx Diabetes Mellitus Type 1, Hx Diabetes Mellitus Type 2 Renal/ Medical History: Denies: Hx Peritoneal Dialysis - Immunizations Hx Diphtheria, Pertussis, Tetanus Vaccination: Yes Physical Exam - Vital signs Vitals: Temp Pulse Resp BP Pulse Ox 97.9 F 61 18 120/84 97 12/17/17 00:54 12/17/17 00:54 12/17/17 00:54 12/17/17 00:54 12/17/17 00:54 Course - Re-evaluation Re-evalutation: Patient seen and examined vital signs reviewed. Patient was evaluated and treated as appropriate for the patient's presenting symptoms and complaint, with consideration of any critical or life threatening conditions that may be associated with their obtained history and exam as noted above. The patient was re-evaluated and was stable, improved, no further episodes of anxiety or any other symptoms. Evaluation was most consistent with panic attack, similar to the once he has had in the past, symptoms completely resolved upon my examination, I did advise that the patient should take an additional 25 mg of hydroxyzine, when he gets home so that he can get some rest and improve his overall symptoms. Patient was agreeable and discharged to home. Plan of care was discussed with the patient at this point, after careful consideration I feel that that patient can be discharged from the emergency department, the patient was educated treatments and reasons to return to the emergency department based on their presumed diagnosis as noted above, they were advised to followup with a primary care physician in 2-3 days. Patient was agreeable to plan of care. *Note is created using voice recognition software and may contain spelling, syntax or grammatical errors. - Vital Signs Vital signs: Temp Pulse Resp BP Pulse Ox 97.9 F 61 18 120/84 97 12/17/17 00:54 12/17/17 00:54 12/17/17 00:54 12/17/17 00:54 12/17/17 00:54 - EKG Interpretation by Me Additional EKG results interpreted by me: EKG demonstrates sinus rhythm with a ventricular rate of 68 bpm, normal axis, normal intervals, no evidence of acute ischemia on this EKG, this is compared to prior EKG from 05/10/2017, without significant change. Discharge - Discharge Clinical Impression: Stress reaction Condition: Stable Disposition: HOME, SELF-CARE Instructions: Anxiety ([facility]) Additional Instructions: Please return to the emergency department if you have any worsening, or concern of your symptoms. Please return to the emergency department if you develop chest pain, difficulty breathing, severe abdominal pain, or ongoing vomiting. Please follow-up with your primary care physician in 2-3 days and any other recommended physicians. If prescribed, take all medications as directed. If you have any questions or concerns do not hesitate to return the emergency department for evaluation. I would encourage you to take an additional 25 mg of hydroxyzine, the medication you were previously prescribed to help with your symptoms tonight, and take as needed. Please follow-up with a primary care provider. Referrals: [facility] [Provider Group] - Follow up in 3-5 days [facility] [Provider Group] - Follow up in 3-5 days
--- NOTE | 2017-12-17 11:13 | EKG REPORT ---
SEVERITY:- NORMAL ECG - SINUS RHYTHM : Confirmed by: Janey Ramírez 17-Dec-2017 11:12:44
== END 2017-12-17 01:11 | disposition home or self-care (01) ==
LOC: ER 22:47
DX: F43.9 Reaction to severe stress, unspecified (principal); F41.9 Anxiety disorder, unspecified; E78.00 Pure hypercholesterolemia, unspecified
CPT/HCPCS: 93005; 93010; 99284

== ENCOUNTER 2017-12-31 19:27 | Emergency (ER) | payer SELFPAY ==
--- NOTE | 2017-12-31 20:42 | ER Document Report ---
ED GI/ - General Chief Complaint: Abdominal Pain Stated Complaint: LEFT ABDOMINAL PAIN Time Seen by Provider: 12/31/17 20:42 Mode of Arrival: Ambulatory Information source: Patient Notes: Patient presented to the emergency room with a sudden onset of left lower quadrant abdominal pain which started this afternoon. Patient denies fever, nausea or vomiting. TRAVEL OUTSIDE OF THE [place] IN LAST 30 DAYS: No - HPI Patient complains to provider of: Abdominal pain Onset: Just prior to arrival Timing/Duration: Sudden Quality of pain: Sharp Severity at maximum: Moderate Severity in ED: Moderate Pain Level: 3 Location: LLQ Sexual history: Active Associated symptoms: None Exacerbated by: Denies Relieved by: Denies Similar symptoms previously: No Recently seen / treated by doctor: No - Related Data Allergies/Adverse Reactions: No Known Allergies Allergy (Verified 05/10/17 16:24) Past Medical History - Social History Smoking Status: Never Smoker Chew tobacco use (# tins/day): No Frequency of alcohol use: Heavy Drug Abuse: None Family History: Reviewed & Not Pertinent, Other - Negative for premature coronary artery disease Reports mother has panic attacks Patient has suicidal ideation: No Patient has homicidal ideation: No - Past Medical History Cardiac Medical History: Reports: Hx Hypercholesterolemia Denies: Hx Coronary Artery Disease, Hx Hypertension Neurological Medical History: Denies: Hx Seizures Endocrine Medical History: Denies: Hx Diabetes Mellitus Type 1, Hx Diabetes Mellitus Type 2 Renal/ Medical History: Denies: Hx Peritoneal Dialysis - Immunizations Hx Diphtheria, Pertussis, Tetanus Vaccination: Yes Review of Systems - Review of Systems Constitutional: No symptoms reported EENT: No symptoms reported Cardiovascular: No symptoms reported Respiratory: No symptoms reported Gastrointestinal: Abdominal pain - LLQ Genitourinary: No symptoms reported Male Genitourinary: No symptoms reported Musculoskeletal: No symptoms reported Skin: No symptoms reported Hematologic/Lymphatic: No symptoms reported Neurological/Psychological: No symptoms reported -: Yes All other systems reviewed and negative Physical Exam - Vital signs Vitals: Temp Pulse Resp BP Pulse Ox 98.0 F 72 22 H 121/78 97 12/31/17 19:35 12/31/17 19:35 12/31/17 19:35 12/31/17 19:35 12/31/17 19:35 Interpretation: Normal - General General appearance: Appears well, Alert In distress: None - HEENT Head: Normocephalic, Atraumatic Eyes: Normal Pupils: PERRL - Respiratory Respiratory status: No respiratory distress Chest status: Nontender Breath sounds: Normal Chest palpation: Normal - Cardiovascular Rhythm: Regular Heart sounds: Normal auscultation Murmur: No - Abdominal Inspection: Normal Distension: No distension Bowel sounds: Normal Tenderness: Tender - LLQ tenderness to palpation. Organomegaly: No organomegaly - Back Back: Normal, Nontender - Extremities General upper extremity: Normal inspection, Nontender, Normal color, Normal ROM , Normal temperature General lower extremity: Normal inspection, Nontender, Normal color, Normal ROM , Normal temperature, Normal weight bearing. No: Nicole's sign - Neurological Neuro grossly intact: Yes Cognition: Normal Orientation: AAOx4 Maru Coma Scale Eye Opening: Spontaneous [place] Coma Scale Verbal: Oriented [place] Coma Scale Motor: Obeys Commands [place] Coma Scale Total: 15 Speech: Normal Motor strength normal: LUE, RUE, LLE, RLE Sensory: Normal - Psychological Associated symptoms: Normal affect, Normal mood - Skin Skin Temperature: Warm Skin Moisture: Dry Skin Color: Normal Course - Vital Signs Vital signs: Temp Pulse Resp BP Pulse Ox 76 F L 65 16 107/52 L 96 01/01/18 02:01 01/01/18 01:12 01/01/18 02:01 01/01/18 02:01 01/01/18 02:01 - Laboratory Result Diagrams: 12/31/17 20:10 12/31/17 20:10 Laboratory results interpreted by me: 12/31/17 12/31/17 12/31/17 20:10 20:10 20:10 WBC 11.2 H Carbon Dioxide 32 H Total Protein 8.4 H Urine Urobilinogen 2.0 H - Diagnostic Test Radiology reviewed: Image reviewed, Reports reviewed - Transfer of Care Notes: 01/01/18 02:09 LLQ abdominal pain. Discharge - Discharge Clinical Impression: Acute diverticulitis Abdominal pain Qualifiers: Abdominal location: left lower quadrant Qualified Code(s): R10.32 - Left lower quadrant pain Condition: Stable Disposition: HOME, SELF-CARE Instructions: Abdominal Pain ([facility]), Diverticulitis ([facility]) Additional Instructions: Please follow-up with the Computer Systems Security Administrator Dr. Marcus with your primary care Dr. Luther tomorrow morning. Please take your antibiotics as prescribed. Return to the emergency room for fever, nausea vomiting, severe abdominal pain or for any other concerns. Return to the emergency room if her condition worsens. Prescriptions: Ciprofloxacin HCl [Cipro 500 mg Tablet] 500 mg PO BID #20 tablet Ibuprofen 800 mg PO TID PRN #30 tablet PRN Reason: Pain Scale Of 3 Metronidazole [Flagyl 500 mg Tablet] 500 mg PO TID #30 tablet Ondansetron [Zofran Odt 4 mg Tablet] 1 tab PO Q6H PRN #25 tab.rapdis PRN Reason: For Nausea/Vomiting Referrals: CEFERINO LUTHER MD [COMMUNITY BASED STAFF] - Follow up as needed ALEXY MARCUS MD [ACTIVE STAFF] - Follow up as needed
[2017-12-31 21:01] LABS: ABSOLUTE EOSINOPHILS # (AUTO) 0.2 10^3/uL (0.0-0.6); ABSOLUTE MONOCYTES (AUTO) 1.1 10^3/uL (0.1-1.4); ABSOLUTE NEUT (AUTO) 7.9 10^3/uL (1.7-8.2); BASOPHILS % (AUTO) 0.2 % (0-2); EOSINOPHILS % (AUTO) 1.7 % (0-6); HEMATOCRIT 46.2 % (37.9-51.0); HEMOGLOBIN 15.8 g/dL (13.5-17.0); LYMPHOCYTES % (AUTO) 17.6 % (13-45); MEAN CORPUSCULAR HEMOGLOBIN 30.6 pg (27.0-33.4); MEAN CORPUSCULAR HGB CONC 34.1 g/dL (32.0-36.0); MEAN CORPUSCULAR VOLUME 90 fl (80-97); MONOCYTES % (AUTO) 9.6 % (3-13); PLATELET COUNT 209 10^3/uL (150-450); RED BLOOD COUNT 5.14 10^6/uL (4.35-5.55); RED CELL DISTRIBUTION WIDTH 12.9 % (11.5-14.0); SEGMENTED NEUTROPHILS % (AUTO) 70.9 % (42-78); TOTAL CELLS COUNTED % (AUTO) 100 %; WHITE BLOOD COUNT 11.2 10^3/uL (4.0-10.5)
[2017-12-31 21:07] LABS: APPEARANCE,URINE CLEAR; BILIRUBIN,URINE NEGATIVE (NEGATIVE); COLOR,URINE YELLOW; GLUCOSE, URINE NEGATIVE (NEGATIVE); KETONES,URINE NEGATIVE (NEGATIVE); LEUKOCYTE ESTERASE,URINE NEGATIVE (NEGATIVE); NITRITE,URINE NEGATIVE (NEGATIVE); PROTEIN,URINE NEGATIVE (NEGATIVE); URINE SPECIFIC GRAVITY 1.015
[2017-12-31 21:13] LABS: ALANINE AMINOTRANSFERASE 47 U/L (21-72); ALBUMIN 4.6 g/dL (3.5-5.0); ALKALINE PHOSPHATASE 65 U/L (38-126); ANION GAP 8 (5-19); ASPARTATE AMINO TRANSFERASE 50 U/L (17-59); BILIRUBIN,DIRECT 0.4 mg/dL (0.0-0.4); BILIRUBIN,TOTAL 1.2 mg/dL (0.2-1.3); BLOOD UREA NITROGEN 13 mg/dL (7-20); CALCIUM 9.4 mg/dL (8.4-10.2); CARBON DIOXIDE 32 mmol/L (22-30); CHLORIDE 100 mmol/L (98-107); GLUCOSE 107 mg/dL (75-110); LIPASE 37.8 U/L (23-300); POTASSIUM 4.2 mmol/L (3.6-5.0); SODIUM 139.9 mmol/L (137-145); TOTAL PROTEIN 8.4 g/dL (6.3-8.2)
[2017-12-31] MEDS ORDERED: MORPHINE SULFATE 10 MG/ML INJ IV ONE (22:37)
[2017-12-31] MEDS ORDERED: NORMAL SALINE 1000 ML 1,000 ML IV ONE (22:37)
[2017-12-31] MEDS ORDERED: ONDANSETRON HCL INJ/PF 4 MG/2 ML SDV IV ONE (22:38)
--- NOTE | 2017-12-31 23:53 | RADIOLOGY REPORT (SQ) ---
EXAM DESCRIPTION: CT ABDOMEN PELVIS WITH IV CONTRAST COMPLETED DATE/TME: 12/31/2017 22:37 CLINICAL HISTORY: LLQ abdominal pain COMPARISON: None Available. TECHNIQUE: CT of the abdomen and pelvis performed following IV administration of 84 mL of Omnipaque 350. DLP: 1204.18 mGycm FINDINGS: Lung Bases: The visualized lung bases are clear. Bones: No destructive bone lesions identified. Endplate spondylosis. Abdomen: Liver: The liver has normal size and decreased density. No intrahepatic mass or biliary dilatation. Gallbladder: No calcified gallstones. Spleen, Pancreas, and Adrenal Glands: The spleen, pancreas, and adrenal glands are unremarkable. Kidneys: The kidneys have normal size and contour without evidence of solid mass or hydronephrosis. Bosniak class I left renal cyst. Vasculature: The aorta and IVC have normal caliber and position. The portal vein is patent. The proximal visceral and renal arteries are patent. Stomach: The stomach and duodenum have normal course. Other: No free intraperitoneal air. No free fluid or lymphadenopathy. Pelvis: Bladder: Urinary bladder is unremarkable. Bowel: No dilated loops of large or small bowel. Scattered diverticula of the colon. Short segment wall thickening and pericolic inflammatory change of the proximal sigmoid colon. No well-circumscribed fluid collection. Appendix: Normal appendix. Pelvis: Prostate is not enlarged. IMPRESSION: 1. Findings compatible with acute diverticulitis of the proximal sigmoid colon. 2. Hepatic steatosis. This exam was performed according to our departmental dose-optimization program, which includes automated exposure control, adjustment of the mA and/or kV according to patient size and/or use of iterative reconstruction technique.
[2018-01-01] MEDS ORDERED: METRONIDAZOLE 500 MG/NS RTU 500 MG/100 ML RTUPB IV ONE (01:23)
[2018-01-01] MEDS ORDERED: LEVOFLOXACIN 750 MG/D5W RTU 750 MG/150 ML RTUPB IV ONE (01:23)
[2018-01-01 04:13] VITALS: BP 101/59
== END 2018-01-01 04:19 | disposition home or self-care (01) ==
LOC: ER 19:27
DX: K57.92 Diverticulitis of intestine, part unspecified, without perforation or abscess without bleeding (principal); R10.32 Left lower quadrant pain
CPT/HCPCS: 99284; 96361; 96375; 96365; 96366; 36415; 83690; 85025; 80053; 81001; 74177; J2405; J7030; J1956